=== PATIENT | female | born 1980 | race Caucasian/White ===

== ENCOUNTER 2016-09-17 07:15 | Inpatient (IN) | payer OTHER ==
[~2016-09-17] VITALS: Ht 170.2 cm; Wt 124.3 kg
[~2016-09-17 07:15] MED LIST: IRON1TAB96 PO; PREN1TAB47 PO; VITA100T PO; [UNRECOGNIZED DRUG - CODE] PO
[2016-09-17] MEDS ORDERED: Oxytocin 10 Unit/mL Inj IM PRN (19:20)
[2016-09-17] MEDS ORDERED: diphenhydrAMINE 50 mg Capsule PO PRN (19:20)
[2016-09-17] MEDS ORDERED: Oxytocin 30 Units/500 mL LR 30 UNITS in IV Premix 1 EACH IV PRN (19:20)
[2016-09-17] MEDS ORDERED: Ondansetron 2 mg/mL 2 mL Inj IVPUSH PRN (19:20)
[2016-09-17] MEDS ORDERED: Methylergonovine 0.2 mg/mL Inj IM PRN (19:20)
[2016-09-17] MEDS ORDERED: Lactated Ringer's 1,000 ML IV PRN (19:20)
[2016-09-17] MEDS ORDERED: Sodium Chloride LOK Flush 10 mL Syringe IVFLUSH PRN ×2 (19:20)
[2016-09-17] MEDS ORDERED: Hemorrhage Kit, Post Partum XX ONE (19:20)
[2016-09-17] MEDS ORDERED: Carboprost 250 mCg/mL Inj IM PRN (19:20)
[2016-09-17 19:51] LABS: Mean Corpuscular Hemoglobin 29.4 pg (27.0-35.0); Mean Corpuscular Volume 87.9 fL (81-100)
[2016-09-17] MEDS ORDERED: OMEP20CA11 PO (20:31)
[2016-09-17] MEDS ORDERED: CALC1CAP22 PO (20:33)
[2016-09-17] MEDS ORDERED: METF-496 PO (20:33)
--- NOTE | 2016-09-17 22:06 | DRSVH ---
PROCEDURE: US OB 1 OR MORE FETUS LIMITED INDICATIONS: VERIFY PRESENTATION OUTSIDE/PRIOR DATING DATA: Last menstrual period (LMP): Unknown. LMP-based estimated date of delivery (FATOU): Not available. First dating scan (date and location): 02/18/16, Dr. Antoine's office. Estimated date of delivery (FATOU) from first dating scan: 09/24/16. TECHNIQUE: Real-time scanning was performed of the fetus, with image documentation. Endovaginal scanning: Not performed COMPARISON: None. FINDINGS: A single living intrauterine gestation is present. Presentation: Vertex Placenta: Placental position is anterior, without previa. heart rate: 144 beats per minute. Maternal cervical canal: Not visualized Estimated gestational age from initial scan: 39 weeks, zero days. IMPRESSION: Single live interuterine gestation in vertex position there is Dictated by: Mckayla Andrea M.D. on 09/17/2016 at 22:04 Approved by: Mckayla Andrea M.D. on 09/17/2016 at 22:04
--- NOTE | 2016-09-17 23:03 | HP ---
[address] [address] HISTORY AND PHYSICAL PATIENT: CINTIA CORTEZ : 1980 MR#: [id number] ADMIT: 09/17/2016 JOB ID: [id number] CHIEF COMPLAINT: Presents for induction due to rising blood pressures. HISTORY OF PRESENT ILLNESS: A 35-year-old, 2, para 1, with an EDC of September 24, 2016, based on in vitro fertilization dates, as well as concordant ultrasound, presents at 39 weeks gestation for planned induction. Indications are rising blood pressures at term, ranging in the high 130s to low 140s outpatient check both by myself and by the patient who is a registered nurse. Secondary indication includes a history of shoulder dystocia with her first . Per nursing exam, she is 2 cm dilated, 50% effaced, -3 station. position was initially uncertain based on exam, confirmatory bedside ultrasound confirms vertex position. ISSUES: 1. Excess weight with a BMI in the low 40 range. 2. History of polycystic ovarian syndrome with patient preferring to continue metformin extended release 1000 mg daily throughout the . 3. Conceived with IUI. 4. History of 45 second shoulder dystocia with her first delivery. 5. Initial low lying/marginal placenta previa with breech presentation, resolved on an early August ultrasound showing the placenta at least 5 cm from the cervical os and vertex position. 6. Rh negative. CURRENT MEDICATIONS: 1. vitamins 1 tablet daily. 2. Metformin XR a 1000 mg daily. 3. Famotidine anug-kyc-tswkhru qhs prn heartburn. 4. Omeprazole 20 mg daily prn heartburn. ALLERGIES: No known drug allergies. HEALTHCARE MAINTENANCE: She had a flu vaccine May 20, 2016, and RhoGAM June 30, 2016. Her Tdap was given July 28, 2016. LABORATORIES: Blood type A-negative. Rubella immune. Serology nonreactive. Hepatitis B surface antigen negative. A1c at the onset of was 5.8. Hematocrit at 27 weeks was 37.9. Antibody was screen was negative then at seven weeks. Her Pap was normal in April 2014, not repeated this . At eight weeks a one hour glucose tolerance test was 105; at 27 weeks a two hour glucose tolerance test showed a fasting of 84, one hour 132, a two hour of 125. She had a normal quad screen in April of this year. Urine culture showed less than 100,000 gram-negative rods at the onset of , not felt to require treatment. Gonorrhea and Chlamydia cultures were negative in February of this year. She is GBS negative, screened August 21, 2016. PAST GYNECOLOGIC HISTORY: 2, para 1. In 2012, she delivered an 8 pounds 4 ounce male by vaginal delivery, complicated with a vacuum extraction due to maternal exhaustion, as well as heart rate decelerations. She sustained a third-degree perineal tear. There was a 45 second shoulder dystocia. 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 She is a nonsmoker and does not drink alcohol while . PHYSICAL EXAMINATION: Please see nursing notes for admission vital signs. Per nursing exam she has a cervical examination of 2 cm dilation, 50% effaced, -3 station. heart tracing is reported as a category 1 tracing. ASSESSMENT: 1. Gravid at 39 weeks gestation. 2. Excess weight. 3. Mildly rising blood pressures at term. I have recommended, given this and a history of shoulder dystocia, induction at 39 weeks. 4. Conception with IUI 5. History of polycystic ovarian syndrome with patient continuing metformin XR 1000 mg daily throughout . 6. Rh negative. PLAN: In the office we reviewed risks and benefits of induction and consent was signed today. Plan is for placement of Cervidil overnight, followed by oxytocin augmentation if she does not enter active labor on her own. She does desire an epidural. Dr. Isai Coker is aware of this patient and is telecommunication engineer for backup. SCOOTER
[2016-09-18] MEDS ORDERED: Multivit-Miner-Folic Acid-Iron Tablet PO SCH (08:30)
[2016-09-18] MEDS ORDERED: Oxytocin 30 Units/500 mL LR 30 UNITS in IV Premix 1 EACH IV PRN ×2 (08:40→18:35)
--- NOTE | 2016-09-18 08:56 | PROG NOTE ---
[address] [address] PROGRESS NOTE PATIENT: CINTIA CORTEZ : 1980 MR#: [id number] ADMIT: 09/17/2016 JOB ID: [id number] DATE: 09/18/2016 SUBJECTIVE: The patient received Cervidil overnight, it is due to come out in about 45 minutes. She has had occasional mild contractions. Her swelling is a bit better for being in bed. Blood pressures overnight have been in the 120s-130s. No elevated numbers. Her platelets did come back very slightly low at 124,000. DATE: PHYSICAL EXAMINATION: Last blood pressure at 7:30, 130/71, pulse 110, temperature 36.4, respirations 16. Alert, smiling, gravid woman. Vaginal examination not repeated as she has Cervidil in place. heart tracing shows a baseline in the 140s with numerous accelerations, good variability. Looking back a few hours, there is one period of decreased variability likely a sleep cycle. Before and after that variability is excellent with no decelerations. The patient has 1+ edema in the ankles. White count 8.8, platelets 124, hematocrit 36.2, BUN 13, creatinine 0.59. Uric acid 5.8. AST 17, ALT 11. Protein to creatinine ratio, urine, was less than 0.14. Obstetrical ultrasound yesterday to confirm position shows vertex position, anterior placenta without previa. heart rate of 144. ASSESSMENT: 1. Gravid at 39 and 1/7 weeks. 2. GBS negative. 3. Mild thrombocytopenia more likely related to late rather than PIH. 4. Rising blood pressures at term with patient agreeable with induction after discussion of risks and benefits. 5. Antibody screen positive but for anti D which is not unexpected given prior RhoGAM. Prior antibody screens in have been negative. 6. History of polycystic ovarian syndrome. 7. History of shoulder dystocia. 8. Rh negative. PLAN: The patient received Cervidil overnight, when it comes out we will recheck her and likely start oxytocin per protocol. Dr. Isai Coker is aware and my backup. Plan discussed with patient and her and she is agreeable with continued proceeding towards delivery. If oxytocin results in minimal clinical response, we discussed discontinuing it this evening and waiting perhaps 12-24 hours for additional cervical ripening time. Alternate option would be an additional dose of ripening such as misoprostol. MTDD
[2016-09-18] MEDS: fentaNYL-PF 50 mCg/mL 2 mL Inj IVPUSH PRN ×2 (14:50→15:56)
[2016-09-18] MEDS ORDERED: Lactated Ringer's 1,000 ML IV SCH ×2 (15:58→18:34)
[2016-09-18] MEDS ORDERED: Lactated Ringer's 500 ML IV ONE (15:58)
[2016-09-18] MEDS ORDERED: Atropine 1 mg/10 mL (Code) Syringe IVPUSH PRN (16:00)
[2016-09-18] MEDS ORDERED: fentaNYL-PF 50 mCg/mL 2 mL Inj IVPUSH PRN (16:00)
[2016-09-18] MEDS ORDERED: EPHEDrine Sulfate 50 mg/mL Inj IVPUSH PRN (16:00)
[2016-09-18] MEDS ORDERED: fentaNYL 2 mCg/mL-Bupiv 0.125% 100 ML EPIDURAL SCH (16:00)
[2016-09-18] MEDS ORDERED: Ondansetron 2 mg/mL 2 mL Inj IVPUSH PRN (16:00)
[2016-09-18] MEDS ORDERED: Sodium Chloride LOK Flush 10 mL Syringe IVFLUSH SCH (16:30)
--- NOTE | 2016-09-18 16:46 | PCM.HPANE ---
Patient Data Date of Service: Sep 18, 2016 Surgeon Admitting Provider:Dominick Ferrer MD Attending Provider:Dominick Ferrer MD Primary Care Physician:Dominick Ferrer MD Other Provider:Pee Emanuel Anesthesia Reason for Visit Term Induction PRIMARY C-S, TERM TRANSVERSE LIE, MARGINAL PREVIA Ht/WT & BMI Body Mass Index Allergies Coded Allergies: No Known Allergies (Unverified Allergy, Unknown, 09/17/16) Past Anesthesia History Anesthesia History: Denies:: Anesthesia Reactions Medications Hypertension Medication: No Home Meds Incl Beta Brandi: No Reported Medications Calcium Carbonate/Vitamin D3 (Calcium 600 + Vit D 400 Softgl)1 Each Capsule1 Each PO DAILY 09/17/16 Metformin ER 1,000 Mg Tablet1,000 Mg PO DAILY Ref 0 09/17/16 Omeprazole 20 Mg Capsule.dr20 Mg PO DAILY Ref 0 09/17/16 Famotidine-Expunged Drug, Do Not Renew! 20 Mg Thkbhw60 Mg PO DAILY 01/06/13 Vitamin B Complex 100 No.2 (B100 Balanced)100 Mg Tablet.sa100 Mg PO 01/05/13 Iron &Iron Asp Gly/Fa/Mv,Min38 (Iron Tablet)1 Each Tablet1 Each PO 01/05/13 Vit/Fe Fumarate/Fa-Expunged Drug, Do (-Expunged Drug, Do Not Renew!)1 Tab Tablet1 Tab PO DAILY 01/05/13 History History of ENT Problems?: No Hx of Heart Problems?: No Hx of Respiratory Problem?: No Hx Neurologic Problems?: No Hx of GI Problems?: Yes Gastrointestinal History: Positive for:: Gastroesphageal Reflux Hx of Problems?: No Female Hx: Positive for:: Currently Hx Musculoskeletal Problems?: No Hx of Psycho/Social Problems?: No Stop/Bang Risk Assessment Category Category 1A: Patient has history of documented sleep apnea, and HAS NOT received any narcotic, sedative or anesthesia administration during this stay. Category 1B: Patient has history of documented sleep apnea, and HAS received any narcotic , sedative or anesthesia administration during this stay Category 2: Patient has SUSPECTED Obstructive Sleep Apnea, and HAS received any narcotic , sedative or anesthesia administration during this stay. Category 3: Patient has SUSPECTED Obstructive Sleep Apnea and HAS NOT received narcotic, sedative or anesthesia administration during this stay. Category 4: Outpatient in Procedural Areas with known sleep apnea or who screen positive for High Risk via the STOP/BANG questionnaire. Exam Exam General Appearance: Alert, Oriented X3, Cooperative, Moderate Distress HEENT/AIRWAY: MP 2 Lungs: Clear to Auscultation, Normal Air Movement Heart: Exam Unremarkable, Regular Rate/Rhythm, No Murmurs/Rubs/Gallops Meds/Labs/Diagnostics Admission Meds Current Medications Dinoprostone 10 mg 10 mg ONCE ONCE VAGINAL Last administered on 09/17/16 21:05 ; Start 09/17/16 at 19:20; Stop 09/17/16 at 19:54; Status DC Lactated Ringer's (Lr) 1,000 ml @ 125 mls/hr Q8H IV Last administered on 16:00; Start 09/18/16 at 15:58; Stop 09/19/16 at 15:59 Labs Test 09/17/16 19:25 White Blood Count 8.8th/mm3 (3.8-10.1) Red Blood Count 4.12mil/mm3 (3.90-5.20) Hemoglobin 12.1g/dL (12.0-15.6) Hematocrit 36.2% (35.0-46.0) Mean Corpuscular Volume 87.9fL (81-100) Mean Corpuscular Hemoglobin 29.4pg (27.0-35.0) Mean Corpuscular Hemoglobin Concent 33.4% (32.0-37.0) Red Cell Distribution Width 14.7% (12.3-15.4) Platelet Count 124bil/L (150-400) Hematology Comments Urine Random Creatinine 29mg/dL (16-392) Urine Random Total Protein < 4mg/dL (0-15) Urine Protein/Creatinine Ratio < 0.14 Blood Urea Nitrogen 13mg/dL (6-20) Creatinine 0.59mg/dL (0.57-1.00) Uric Acid 5.8mg/dL (2.6-7.2) Aspartate Amino Transf (AST/SGOT) 17U/L (0-50) Alanine Aminotransferase (ALT/SGPT) 11U/L (0-32) Plan Impression Patient chart reviewed, patient interviewed and anesthestic plan with risks, benefits, and alternatives discussed, and informed consent obtained. NPO Status: presume full stomach ASA Physical Status: ASA3 Severe Disease Anesthetic Plan: Epidural Bene/Risks/Altern/Consents: Yes HP Complete Prior to Induction: Yes Sam Garcia MD Sep 18, 2016 16:45
[2016-09-18] MEDS ORDERED: LANOlin HPA 7 Gm Ointment TOPICAL PRN (18:35)
[2016-09-18] MEDS ORDERED: Oxytocin 10 Unit/mL Inj IM PRN (18:35)
[2016-09-18] MEDS ORDERED: Carboprost 250 mCg/mL Inj IM PRN (18:35)
[2016-09-18] MEDS ORDERED: Methylergonovine 0.2 mg/mL Inj IM PRN (18:35)
[2016-09-18] MEDS ORDERED: Hemorrhage Kit, Post Partum XX ONE (18:35)
[2016-09-18] MEDS ORDERED: HYDROcodone-APAP 5-325 mg Tablet PO PRN (18:35)
[2016-09-18] MEDS ORDERED: Benzocaine (Dermoplast) 20% 60 Gm Spray TOPICAL PRN (18:35)
[2016-09-18] MEDS ORDERED: Witch Hazel-Glycerin Pads TOPICAL PRN (18:35)
--- NOTE | 2016-09-18 19:00 | OP ---
[address] [address] OPERATIVE REPORT PATIENT: CINTIA CORTEZ : 1980 MR#: [id number] ADMIT: 09/17/2016 JOB ID: [id number] DELIVERY NOTE DATE OF DELIVERY: 09/18/2016 PHYSICIAN: Dominick Ferrer MD DELIVERY POSITION: RONNI. DELIVERY WEIGHT: 3572 grams (7 pounds 14 ounces), viable male APGARS: 8 and 9 UMBILICAL CORD: Three-vessel cord. Normal length and appearance. PLACENTA: Side central cord insertion. No evidence of retained fragments. Mild calcifications noted. Otherwise normal appearance. ESTIMATED BLOOD LOSS: 400 mL. LACERATIONS: Second-degree perineal. COMPLICATIONS: Nuchal cord x1. DELIVERY NOTE: The patient was found to be completely dilated but had just received her epidural and requested time to 'labor down.' It was difficult to monitor heart rate tracings externally and so a scalp lead was placed successfully. The patient felt an increasing urge to push and increasing rectal pressure. She pushed a fairly short time, bringing the head down in RONNI position. A nuchal cord was identified and easily reduced before delivery of the body and shoulders. There was no shoulder dystocia and the rest of the infant delivered well. There was an audible perineal popped with the right, or posterior, shoulder causing a second-degree perineal tear. The infant was handed off to mother and nursing and immediately cried, with good tone and color. Cord was clamped after a 2-minute delay and cord blood collected and sent. The perineum was inspected and showed a second-degree perineal laceration, repaired with 2-0 Vicryl after instillation of 8 mL of 1% lidocaine. Placenta delivered with gentle traction on the cord. There were several gushes which slowed with IV oxytocin. Total estimated blood loss was 400 mL. The patient is in stable condition . She plans to breastfeed. [facility] THRO[facility] HOSPITALDevin
--- NOTE | 2016-09-19 05:50 | PCM.ANEP2 ---
Post Anesthesia Evaluation ASA/CMS Post Anesthesia Date of Service: Sep 19, 2016 VS in Patient's Normal Range?: Yes Resp Stable; Airway Patent?: Yes CV Function & Hydration Stable: Yes Mental Status Recovered?: Yes Pain control Satisfactory?: Yes N/V Control Satisfactory?: Yes Sam Garcia MD Sep 19, 2016 05:50
--- NOTE | 2016-09-19 05:50 | PCM.ANEP1 ---
Post Anesthesia Phase 1 PACU Phase 1 Assessment Date of Service: Sep 18, 2016 Anesthetic Administered: Epidural Level of Alertness: Awake, talking NELSON's with Equal Strength: Yes Pain: No Pain Scale Score: 0 Nausea or Vomiting: No Lungs: Clear to Auscultation, Normal Air Movement Dermatome Level: Full Sensation Summary Satisfactory epidural. Patient happy. Sam Garcia MD Sep 19, 2016 05:50
[2016-09-19 06:57] LABS: Mean Corpuscular Hemoglobin 29.2 pg (27.0-35.0)
--- NOTE | 2016-09-19 09:22 | PCM.DIOB ---
Obstetrical Disch Instruction Date of Service: Sep 19, 2016 Dates of Hospitalization Date of Hospital Admission Sep 17, 2016 at 18:54 Providers Admitting Physician: Dominick Ferrer MD Primary Care Physician: Dominick Ferrer MD Attending Physician: Dominick Ferrer MD Discharge Diagnosis Problems: (1) Encounter for full-term uncomplicated delivery Status: Acute ICD Code: O80 (2) Elevated blood pressure affecting in third trimester, antepartum Status: Acute ICD Code: O13.3 Diet Discharge Diet: No restrictions Activity Discharge Activity-General: Pelvic Rest for 6 weeks, Balance rest and activity Dressing and Incisional Care Hygiene: May shower Follow Up Plan Follow-up Provider (F9): Dominick Ferrer MD Follow-up appointment: Weeks (6) Call your provider for: Fever or Chills, Shortness of breath, Heavy vaginal bleeding, Excessive constipation, Red painful breasts Dominick Ferrer MD Sep 19, 2016 09:22
[2016-09-19] MEDS ORDERED: FERR-74 PO (09:23)
[2016-09-19] MEDS ORDERED: IBUP-1827 PO (09:23)
--- NOTE | 2016-09-19 10:13 | DIS ---
[address] [address] DISCHARGE SUMMARY PATIENT: CINTIA CORTEZ : 1980 MR#: [id number] ADMIT: 09/17/2016 JOB ID: [id number] DIS: 09/19/2016 DISCHARGE DIAGNOSES: 1. Vaginal delivery at term to a viable 7 pounds 14 ounce male. 2. Labor induction and augmentation due to rising blood pressures at term. 3. Excess weight. 4. History of polycystic ovarian syndrome with patient electing to take metformin XR 1000 mg daily throughout the . 5. History of 45 second shoulder dystocia with her first delivery. 6. Previous marginal placenta previa this , resolved. 7. Rh negative. 8. Mild thrombocytopenia, asymptomatic. ALLERGIES: None known. DISCHARGE MEDICATIONS: 1. vitamins 1 tablet daily. 2. Ibuprofen 600 mg q.6 hours p.r.n. pain. 3. Docusate sodium 100 mg p.o. b.i.d. p.r.n. constipation. 4. Ferrous sulfate 325 mg daily for six weeks. DISCHARGE INSTRUCTIONS: 1. Diet ad darrius. 2. Activity ad darrius. 3. Pelvic rest for six weeks. 4. Call for increased fevers, excess bleeding, breast pain, excess constipation or other issues. HOSPITAL COURSE: The patient is a now 35-year-old, now 2, para 2, with an EDC of September 24, 2016. She was admitted at 39 weeks gestation due to rising blood pressures in the high 130s to low 140s systolic range. Her PIH labs returned normal with the exception of a mildly low platelet count at 124,000. The patient received Cervidil overnight after discussion with Dr. Isai Coker. Oxytocin was then added. She entered active labor, received an epidural and went onto have an uncomplicated delivery to a 7 pounds 14 ounce viable male in RONNI position. There was a nuchal cord which was easily reduced. She sustained a second-degree perineal laceration which was repaired. she is caring for her infant well. Her bleeding is slowing. Her hematocrit was 30.2, down from an admit value of 36.2. Of note, her initial platelets were 124,000 dropping to 110,000. However, she has no excess bleeding and I do not suspect this is related to her mildly elevated blood pressures which resolved after delivery. Unless new symptoms I do not plan to repeat a CBC. She feels comfortable going home later today. She will continue iron for six weeks and follow up in my office in six weeks, sooner if problems. Aftercare for her second-degree repair was discussed, including pelvic rest for 6 weeks. SCOOTER
[2016-09-19 18:09] VITALS: BP 119/69; PULSE 101; RESP 17
== END 2016-09-19 18:45 | disposition home or self-care (01) | DRG 775 ==
LOC: FBC 18:54 → EDSTATUS 09-19 07:15
PROVIDERS: ADMIT Family Medicine; ATTEND Family Medicine
PROC: 10E0XZZ Delivery of Products of Conception, External Approach (ICD-10-PCS; principal; 2016-09-18)
PROC: 0KQM0ZZ Repair Perineum Muscle, Open Approach (ICD-10-PCS; 2016-09-18)
PROC: 3E0P7GC Introduction of Other Therapeutic Substance into Female Reproductive, Via Natural or Artificial Opening (ICD-10-PCS; 2016-09-18)
PROC: 10H07YZ Insertion of Other Device into Products of Conception, Via Natural or Artificial Opening (ICD-10-PCS; 2016-09-18)
DX: O26.93 Pregnancy related conditions, unspecified, third trimester (principal); R03.0 Elevated blood-pressure reading, without diagnosis of hypertension; O70.1 Second degree perineal laceration during delivery; O69.81X0 Labor and delivery complicated by cord around neck, without compression, not applicable or unspecified; E28.2 Polycystic ovarian syndrome; D69.6 Thrombocytopenia, unspecified; Z3A.39 39 weeks gestation of pregnancy; Z37.0 Single live birth

== ENCOUNTER 2017-03-18 19:54 | Emergency (ER) | payer OTHER ==
[~2017-03-18] VITALS: Ht 170.2 cm; Wt 118.0 kg
[~2017-03-18 19:54] MED LIST changes: +CALC1CAP22 PO; +FERR-74 PO; +IBUP-1827 PO; +OMEP20CA11 PO
--- NOTE | 2017-03-18 19:58 | ED.REPORT ---
HPI-General Illness Date of Service Mar 18, 2017 ED Provider: Dr. Mcpherson 36 y/o female with no pertinent hx presents to the ED complaining of irregular heartbeat, onset 5 hours ago. 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 She also felt a tightness in her throat and had to sit down to catch her breath. She was concerned because typically similar tight feeling in her throat resolves on its own but it persisted today.She went to urgent care and was advised to go to ED for possible A-fib. She denies lower extremity edema, hx of heart disease and thyroid disease. She has a family hx of VA and HTN. PCP: Dr. Ferrer Nursing Notes Stated Complaint: IRREGULAR HEARTBEAT/BROUGHT FROM URGENT CARE Nursing Notes Reviewed: Yes Allergies: Coded Allergies: No Known Allergies (Unverified Allergy, Unknown, 09/17/16) Scheduled Atenolol (Atenolol) 25 Mg Tablet 25 MG PO DAILY Calcium Carbonate/Vitamin D3 (Calcium 600 + Vit D 400 Softgl) 1 Each Capsule 1 EACH PO DAILY Famotidine-Expunged Drug, Do Not Renew! (Famotidine-Expunged Drug, Do Not Renew! ) 20 Mg Tablet 20 MG PO DAILY Ferrous Sulfate (Feosol) 325 Mg Tablet 325 MG PO DAILYWM Omeprazole (Omeprazole) 20 Mg Capsule.dr 20 MG PO DAILY Vit/Fe Fumarate/Fa-Expunged Drug, Do (-Expunged Drug, Do Not Renew!) 1 Tab Tablet 1 TAB PO DAILY Scheduled PRN Ibuprofen (Ibuprofen) 600 Mg Tablet 600 MG PO Q6H PRN PRN For Mild Pain Miscellaneous Medications Iron &Iron Asp Gly/Fa/Mv,Min38 (Iron Tablet) 1 Each Tablet 1 EACH PO Vitamin B Complex 100 No.2 (B100 Balanced) 100 Mg Tablet.sa 100 MG PO General Time Seen by MD: 19:58 Chief Complaint Other (irregular heartbeat) Hx Obtained From: Patient Arrived By: Walk-in Sudden in Onset?: Yes Onset Occurred: 5 - 8 hours ago Symptom Duration: Since onset Severity: Current: No pain currently Severity: Maximum: No pain Recent Healthcare: Recent doctor visit Similar Sx Previous: No Past Medical History Past Medical History Polycystic ovarian syndrome Past Surgical History none reported Family History Grandfather had VA and HTN Smoking History Never Smoker Social History Alcohol Use: "Social" Drug Use: THC (occ) Other Social History: Ambulatory Status Independent Review of Systems Reports: irregular heartbeat Reports: tightness in throat Full Review of Systems Respiratory: Reports: Shortness of breath Cardiovascular: Denies: Edema Complete sys rev & neg: except as marked. Physical Exam Vital Signs Vital Signs Date Time Temp Pulse Resp B/P Pulse Ox O2 Delivery O2 Flow Rate FiO2 03/19/17 02:10 94 16 116/50 98 Room Air 03/18/17 23:09 96 16 116/65 97 Room Air 03/18/17 21:59 148 16 132/83 99 Room Air 03/18/17 21:51 148 16 132/83 99 Room Air 03/18/17 20:56 119 16 116/71 100 Room Air 03/18/17 20:05 36.6 198 18 160/77 100 Room Air Initial VS: Reviewed Head / Eyes: Atraumatic, Normocephalic ENT: Mucous membranes moist, Conjunctiva normal, No scleral icterus Neck: Supple, Non-tender, Full range of motion Respiratory: Breath sounds normal, Clear to auscultation, No respiratory distress Abdomen / GI: Soft, Non-tender Extremities: Vascular intact, Neuro intact, No swelling, No tenderness Skin: Warm, Dry, No cyanosis Neurologic: Alert, Oriented, Nonfocal General/Constitutional: Awake, Alert, No acute distress, Cooperative Cardiovascular: No gallop, No murmurs Heart Rate / Rhythm: Positive: Irreg irregular rhythm, Tachycardia Interpretation & Diagnostics Lab Results Interpretation Result Diagram: 03/18/17193903/18/171939 Test 03/18/17 19:40 03/18/17 20:42 03/19/17 00:20 White Blood Count 6.4th/mm3 (3.8-10.1) Red Blood Count 4.61mil/mm3 (3.90-5.20) Hemoglobin 13.3g/dL (12.0-15.6) Hematocrit 41.3% (35.0-46.0) Mean Corpuscular Volume 89.6fL (81-100) Mean Corpuscular Hemoglobin 28.9pg (27.0-35.0) Mean Corpuscular Hemoglobin Concent 32.2% (32.0-37.0) Red Cell Distribution Width 13.6% (12.3-15.4) Platelet Count 196bil/L (150-400) Neutrophils (%) (Auto) 43.7% (40-74) Lymphocytes (%) (Auto) 39.9% (14-46) Monocytes (%) (Auto) 12.4% (4-12) Eosinophils (%) (Auto) 3.3% (0-5) Basophils (%) (Auto) 0.5% (0-3) D-Dimer 0.53mg/L FEU (<0.50) Sodium Level 141mEq/L (134-144) Potassium Level 4.1mEq/L (3.5-5.2) Chloride Level 105mEq/L (97-108) Carbon Dioxide Level 22mmol/L (18-29) Blood Urea Nitrogen 21mg/dL (6-20) Creatinine 0.76mg/dL (0.57-1.00) Estimat Glomerular Filtration Rate 125mL/min (>59) Glucose Level 89mg/dL (60-99) Calcium Level 9.0mg/dL (8.5-10.1) Magnesium Level 1.9mg/dL (1.6-2.6) Total Bilirubin 0.2mg/dL (0.0-1.2) Aspartate Amino Transf (AST/SGOT) 22U/L (0-50) Alanine Aminotransferase (ALT/SGPT) 22U/L (0-32) Alkaline Phosphatase 120U/L (25-150) Total Protein 7.0g/dL (6.4-8.4) Albumin 3.9g/dL (3.4-5.0) Thyroid Stimulating Hormone (TSH) 2.360uIU/mL (0.450-4.500) Urine HCG, Qualitative Negative (Negative) Troponin T 0.010ug/L (0.0-0.011) ECG Interpretation ECG Interpretation: Tachycardia. Rate 192 Regular narrow complex Time: 20:01 Interpreted by: ED physician ECG Interpretation: Normal sinus rhythm. Rate 93 Time: 00:11 Interpreted by: ED physician Repeat ECG: Repeat ECG ch from prior (condition improved) CT Chest Interpretation IMPRESSION: No acute disease Dictated by: Ramirez Lin M.D. on 03/18/2017 at 20:56 Approved by: Ramirez Lin M.D. on 03/18/2017 at 20:57 Study type: Chest CT no contrast Interpretation / Wet Read by: Interpret - Radiologist Re-Eval/Medical Decision Med Decision/Clinical Course 36 year-old femal with atrial fibrillation and rapid ventricular response. New onset today. Not syncopal/presyncope or having chest pain in spite of rapid rate. Dimer esssentially normal. Converted to NSR on cardizem drip. ECG shows NSR and appears normal post conversion, repeat trop negative. Will start atenolol after discussion with cardiology. Time of Eval: 21:03 Re-Evaluation/Progress Note: Rechecked pt. Drip started. Rate control not adequate. Time of Eval: 00:15 Patient Status: Condition improved Re-Evaluation/Progress Note: Recked pt. She feels better and is now back on sinus rhythm. Discussed lab results, imaging results, diagnosis and plan to consult cardiology. She understands. All questions answered. Time of Eval: 01:39 Patient Status: Condition resolved Re-Evaluation/Progress Note: Pt informed troponin is negative and cardiology consult is pending. The pt understands. All questions answered. Time of Eval: 01:47 Patient Status: Condition resolved Re-Evaluation/Progress Note: The pt informed Dr. Abdul was consulted and she recommends prescribing Atenolol. Discussed the plan to discharge the pt. She understands and agrees with the plan. All questions answered. Consultation : Referral / Consult Name: Anne Abdul MD Consulted With: Cardiology Call Returned at: 01:44 Medical Office Assistant Instructor: Agrees with eval, Agrees with plan Note: Dr. Abdul recommends discharging the pt with a prescription for Atenolol. Counseled Regarding: Diagnosis, Lab results, Need for follow-up, When/why to return to ED Discharge & Departure Primary Impression: Atrial fibrillation with rapid ventricular response Disposition: Home Discharge Condition All VS Reviewed: Yes Condition: Stable Patient Instructions: A-fib (Atrial Fibrillation) (ED) Additional Instructions: Emergency department course included interview, examination ECG labs and chest x -ray. No cause for atrial fibrillation is identified, sinus rhythm was eventually restored with rate control. Return to emergency department if you have a recurrence of atrial fibrillation symptoms. Call 911 if having chest pain or shortness of breath. We will start atenolol 25mg daily to try to prevent high rates if a-fib returns. The cardiology office will call with follow up, call them if you do not hear by tomorrow afternoon. . Referrals: Dominick Ferrer MD (PCP) Scribe Attestation Portions of this note were transcribed by Som Herrera. I, , personally performed the history, physical exam and medical decision- making;I reviewed and confirmed the accuracy of the information in the transcribed note. Signed by Adrian Davis. 03/19/17 01:49 copies to: Dominick Ferrer MD, Donald L MD Mar 18, 2017 19:58 Som Herrera Mar 18, 2017 20:09
[2017-03-18] MEDS ORDERED: Adenosine 3 mg/mL 2 mL Inj ONE (20:02)
[2017-03-18 20:05] VITALS: BP 160/77; PULSE 198; RESP 18; O2SAT 100
[2017-03-18] MEDS ORDERED: Diltiazem Inj 125 MG in Dextrose 5% 100 ML IV SCH (20:06)
[2017-03-18] MEDS ORDERED: Diltiazem 5 mg/mL 5 mL Inj IVPUSH ONE ×3 (20:10→21:05)
[2017-03-18 20:30] LABS: BASOPHILS % (AUTO) 0.5 % (0-3); EOSINOPHILS % (AUTO) 3.3 % (0-5); MONOCYTES % (AUTO) 12.4 % (4-12); Mean Corpuscular Hemoglobin 28.9 pg (27.0-35.0); Mean Corpuscular Volume 89.6 fL (81-100); NEUTROPHILS % (AUTO) 43.7 % (40-74); Platelet Count 196 bil/L (150-400)
[2017-03-18 20:54] LABS: Magnesium 1.9 mg/dL (1.6-2.6)
[2017-03-18 20:56] VITALS: BP 116/71; PULSE 119; RESP 16; O2SAT 100
--- NOTE | 2017-03-18 20:59 | DRSVH ---
PROCEDURE: X-RAY CHEST ONE VIEW, PORTABLE ([id number]) INDICATIONS: a fibriallation TECHNIQUE: One view of the chest was acquired. COMPARISON: None. FINDINGS: Surgical changes and devices: None. Lungs and pleura: No pleural effusions or pneumothorax. Lungs are clear. Mediastinum: Mediastinal contours appear normal. Heart size is normal. Bones and chest wall: No suspicious bony lesions. Overlying soft tissues appear unremarkable. IMPRESSION: No acute disease Dictated by: Ramirez Lin M.D. on 03/18/2017 at 20:56 Approved by: Ramirez Lin M.D. on 03/18/2017 at 20:57
[2017-03-18 21:03] LABS: TROPONIN T 0.01 ug/L (0.0-0.011)
[2017-03-18 21:51] VITALS: BP 132/83; PULSE 148; RESP 16; O2SAT 99
[2017-03-18 21:59] VITALS: BP 132/83; PULSE 148; RESP 16; O2SAT 99
[2017-03-18 23:09] VITALS: BP 116/65; PULSE 96; RESP 16; O2SAT 97
[2017-03-19] MEDS ORDERED: ATEN25TA PO (01:58)
[2017-03-19 02:10] VITALS: BP 116/50; PULSE 94; RESP 16; O2SAT 98
== END 2017-03-19 02:11 | disposition home or self-care (01) ==
LOC: SED 19:54
DX: I48.91 Unspecified atrial fibrillation (principal)